=== PATIENT | female | born 1990 | race Two or more races ===

== ENCOUNTER 2017-01-20 15:41 | Observation (INO) | payer MEDICAID ==
[~2017-01-20] VITALS: Ht 170.2 cm; Wt 92.1 kg
[2017-01-20] MEDS ORDERED: ACETAMINOPHEN 500MG TABLET PO NR (16:15)
[2017-01-20] MEDS ORDERED: ONDANSETRON HCL 4MG/2ML VIAL IV NR (16:15)
[2017-01-20] MEDS ORDERED: SODIUM CHLORIDE 0.9% 1,000 ML IV SCH (16:30)
[2017-01-20] MEDS ORDERED: TERBUTALINE SULFATE 1MG/ML VIAL SUBCUT PRN (16:30)
[2017-01-20 16:51] LABS: CLARITY URINE CLEAR (CLEAR); COLOR URINE YELLOW (YELLOW); GLUCOSE URINE NEGATIVE (NEGATIVE); KETONES URINE 1+ (NEGATIVE); LEUKOCYTE ESTERASE URINE NEGATIVE (NEGATIVE); NITRITE URINE NEGATIVE (NEGATIVE); OCCULT BLOOD URINE NEGATIVE (NEGATIVE); PROTEIN URINE NEGATIVE (NEGATIVE); SPECIFIC GRAVITY URINE 1.024 (1.005-1.030); UROBILINOGEN URINE 0.2 E.U./dL (0.2-1.0)
[2017-01-20 16:52] LABS: CARBON DIOXIDE 23 mEq/L (21-32); CHLORIDE 106 mEq/L (98-107)
== END 2017-01-20 17:30 | disposition home or self-care (01) ==
LOC: L&D 15:41
PROVIDERS: ADMIT Obstetrics & Gynecology; ATTEND Obstetrics & Gynecology
DX: O21.2 Late vomiting of pregnancy (principal); O26.893 Other specified pregnancy related conditions, third trimester; R19.7 Diarrhea, unspecified; M54.9 Dorsalgia, unspecified; Z3A.27 27 weeks gestation of pregnancy
CPT/HCPCS: 36415; 80053; 81003; 96361; 96372; 96374; 99281; G0378; J2405; J3105; J7030

== ENCOUNTER 2017-02-07 16:16 | Observation (INO) | payer MEDICAID ==
[~2017-02-07] VITALS: Ht 170.2 cm; Wt 92.5 kg
[2017-02-07] MEDS ORDERED: PNV1TABL76 PO (16:47)
[2017-02-07 18:01] LABS: BASOPHILS % 0.1 % (0.0-2.0); HEMATOCRIT. 35.7 % (36.0-48.0); HEMOGLOBIN. 12.1 g/dL (12.0-16.0); LYMPHOCYTES % 25.1 % (20.0-50.0); MEAN CORPUSCULAR HEMOGLOBIN 29.5 pg (28.0-32.0); MEAN PLATELET VOLUME 9.7 fl (7.4-10.4); MONOCYTES % 8.5 % (2.0-8.0); NEUTROPHILS % 66.3 % (40.0-76.0); PLATELET 169 x1000/uL (130-400); RED BLOOD CELL COUNT 4.11 mill/uL (4.2-5.4); RED CELL DISTRIBUTION WIDTH 12.8 % (11.6-14.6)
[2017-02-07 18:06] LABS: PARTIAL THROMBOPLASTIN TIME 27.1 sec (23.4-31.0)
== END 2017-02-07 19:10 | disposition home or self-care (01) ==
LOC: L&D 16:16
PROVIDERS: ADMIT Obstetrics & Gynecology; ATTEND Obstetrics & Gynecology
DX: O26.893 Other specified pregnancy related conditions, third trimester (principal); R10.9 Unspecified abdominal pain; O99.89 Other specified diseases and conditions complicating pregnancy, childbirth and the puerperium; M54.9 Dorsalgia, unspecified; Z3A.30 30 weeks gestation of pregnancy
CPT/HCPCS: 36415; 76805; 76818; 85025; 85610; 85730; 99281; G0378

== ENCOUNTER 2018-10-19 20:32 | Emergency (ER) | payer MEDICAID ==
[~2018-10-19] VITALS: Ht 170.2 cm; Wt 78.0 kg
[~2018-10-19 20:32] MED LIST: PNV1TABL76 PO
[2018-10-19] MEDS ORDERED: IBUPROFEN 600MG TABLET PO ONE (23:45)
[2018-10-20 01:26] VITALS: BP 122/75
== END 2018-10-20 01:32 | disposition home or self-care (01) ==
LOC: ER 20:32
DX: S70.02XA Contusion of left hip, initial encounter (principal); S90.02XA Contusion of left ankle, initial encounter; W01.198A Fall on same level from slipping, tripping and stumbling with subsequent striking against other object, initial encounter; Y93.89 Activity, other specified; Y92.89 Other specified places as the place of occurrence of the external cause
CPT/HCPCS: 73502; 73610; 99283; Z7610

== ENCOUNTER 2021-10-16 18:21 | Inpatient (IN) | payer MEDICAID, OTHER ==
[~2021-10-16] VITALS: Ht 170.2 cm; Wt 67.6 kg
[2021-10-16] MEDS ORDERED: ACETAMINOPHEN 325MG TABLET PO ONE (21:00)
[2021-10-16] MEDS ORDERED: HYDROXYCHLOROQUINE SULFATE 200MG TABLET PO ONE (21:00)
[2021-10-16] MEDS ORDERED: PREDNISONE 20MG TABLET PO ONE (21:00)
[2021-10-16] MEDS ORDERED: TETRACAINE 0.5% OPHTH DROPS 4ML RIGHTEYE ONE (22:15)
[2021-10-16] MEDS ORDERED: FLUORESCEIN SODIUM 1MG/STRIP RIGHTEYE ONE (22:15)
[2021-10-16 23:53] LABS: HEMATOCRIT. 30.1 % (36.0-48.0); HEMOGLOBIN. 10.1 g/dL (12.0-16.0); MEAN CORPUSCULAR HEMOGLOBIN 28.8 pg (28.0-32.0); MEAN CORPUSCULAR VOLUME 85.8 fL (81.0-99.0); MEAN PLATELET VOLUME 8.8 fl (7.4-10.4); PLATELET 138 x1000/uL (130-400); RED BLOOD CELL COUNT 3.51 mill/uL (4.2-5.4); RED CELL DISTRIBUTION WIDTH 14.1 % (11.6-14.6)
[2021-10-17] LABS: CHLORIDE 110 mEq/L (98-107)
[2021-10-17 00:01] LABS: HCG SCREEN NEGATIVE
[2021-10-17] MEDS ORDERED: FLUORESCEIN SODIUM 1MG/STRIP RIGHTEYE SCH (00:15)
[2021-10-17] MEDS ORDERED: TETRACAINE 0.5% OPHTH DROPS 4ML RIGHTEYE SCH (00:15)
[2021-10-17 00:34] LABS: ATYPICAL LYMPHOCYTES 3; PLATELET ESTIMATE NORMAL
[2021-10-17] MEDS ORDERED: VANCOMYCIN 1.25GM PMX (XELLIA) 250 ML IV SCH (01:30)
[2021-10-17] MEDS ORDERED: CEFTRIAXONE 2 G PREMIX 50 ML IV ONE (01:30)
[2021-10-17] MEDS ORDERED: MORPHINE SULFATE 2 MG/ML CPJ (NOT FOR IM USE) IV ONE (01:45)
[2021-10-17] MEDS ORDERED: WATER IV SCH (02:00)
[2021-10-17] MEDS ORDERED: VANCOMYCIN IV SCH (02:00)
[2021-10-17] MEDS ORDERED: DEXT 5% IV SCH (02:00)
[2021-10-17 03:32] LABS: CLARITY URINE CLOUDY (CLEAR); COLOR URINE YELLOW (YELLOW); KETONES URINE NEGATIVE (NEGATIVE); LEUKOCYTE ESTERASE URINE NEGATIVE (NEGATIVE); NITRITE URINE NEGATIVE (NEGATIVE); OCCULT BLOOD URINE TRACE (NEGATIVE); PROTEIN URINE 3+ (NEGATIVE); SPECIFIC GRAVITY URINE 1.011 (1.005-1.030); UROBILINOGEN URINE 0.2 E.U./dL (0.2-1.0)
[2021-10-17] MEDS ORDERED: P50 MT (10:45)
[2021-10-17] MEDS ORDERED: BACI3.5O24 EACHEYE (10:45)
[2021-10-17] MEDS ORDERED: HYDR200T80 MT (10:45)
[2021-10-17] MEDS: PREDNISONE 20MG TABLET PO SCH (11:45)
[2021-10-17] MEDS ORDERED: NALOXONE HCL 0.4MG/ML VIAL IV PRN (11:45)
[2021-10-17] MEDS: HYDROCODONE/ACETAMINOPHEN 5/325MG TABLET PO PRN ×3 (11:47→20:59)
[2021-10-17 12:00] VITALS: BP 136/89
[2021-10-17] MEDS ORDERED: BACITRACIN 15GM TUBE TOP NR (12:00)
[2021-10-17] MEDS ORDERED: CEFTRIAXONE 1 G PREMIX 50 ML IV SCH (12:15)
[2021-10-17] MEDS ORDERED: IPRATROPIUM/ALBUTEROL 0.5-3(2.5)MG/3ML NEB HHN PRN (12:15)
[2021-10-17 13:26] VITALS: BP 124/66
[2021-10-17] MEDS: HYDROXYCHLOROQUINE SULFATE 200MG TABLET PO SCH (13:46)
[2021-10-17] MEDS: NICOTINE 7MG PATCH TD SCH (13:47)
[2021-10-17 16:00] VITALS: BP 137/81
[2021-10-17] MEDS: CEFEPIME 2,000 MG in DEXT 5% WATER 100 ML IV SCH (18:16)
[2021-10-17 20:00] VITALS: BP 98/45
[2021-10-17] MEDS ORDERED: VANCOMYCIN 1250MG in DEXTROSE 5% WATER 250ML IV SCH (20:30)
[2021-10-18] VITALS: BP 101/50
[2021-10-18 01:04] LABS: *AMPHETAMINES SCREEN URINE NEGATIVE (NEGATIVE); *BARBITURATES SCREEN URINE NEGATIVE (NEGATIVE); *BENZODIAZEPINES SCREEN URINE NEGATIVE (NEGATIVE); *COCAINE SCREEN URINE NEGATIVE (NEGATIVE); METHADONE URINE SCREEN NEGATIVE (NEGATIVE); PHENCYCLIDINE URINE SCREEN NEGATIVE (NEGATIVE)
[2021-10-18 01:12] LABS: CANNABINOID URINE SCREEN PRESUMTIVE POSITIVE (NEGATIVE); OPIATES URINE SCREEN PRESUMTIVE POSITIVE (NEGATIVE)
[2021-10-18] MEDS ORDERED: CEFTRIAXONE 1,000 MG in DEXTROSE 5% WATER 50 ML IV SCH (02:00)
[2021-10-18 04:00] VITALS: BP 110/63
[2021-10-18] MEDS ORDERED: ONDANSETRON HCL 4MG/2ML INJ IV PRN (04:30)
[2021-10-18] MEDS: OXYCODONE HCL/ACETAMINOPHEN 5/325MG TABLET PO PRN ×3 (04:49→15:00)
[2021-10-18] MEDS: CEFEPIME 2,000 MG in DEXT 5% WATER 100 ML IV SCH ×2 (05:07→06:00)
[2021-10-18 08:00] VITALS: BP 141/88
[2021-10-18] MEDS: NICOTINE 7MG PATCH TD SCH (08:45)
[2021-10-18] MEDS: HYDROXYCHLOROQUINE SULFATE 200MG TABLET PO SCH (08:46)
[2021-10-18] MEDS: PREDNISONE 20MG TABLET PO SCH (08:46)
[2021-10-18] MEDS ORDERED: VANCOMYCIN 750 MG in DEXT 5% WATER 250 ML IV SCH ×2 (09:00→14:00)
[2021-10-18 12:21] VITALS: BP 107/62
[2021-10-18] MEDS ORDERED: DOXY100T2 MT (15:32)
[2021-10-18] MEDS ORDERED: AMOX-424 MT (15:32)
[2021-10-18 16:00] VITALS: BP 117/68
[2021-10-18 16:21] VITALS: BP 107/62
== END 2021-10-18 20:45 | disposition home or self-care (01) | DRG 383 ==
LOC: ER 18:21 → 6EST 10-17 07:54 → ENRESERV 10-17 08:47
PROVIDERS: ADMIT Internal Medicine; ATTEND Internal Medicine
DX: L03.213 Periorbital cellulitis (principal); E43 Unspecified severe protein-calorie malnutrition; E87.8 Other disorders of electrolyte and fluid balance, not elsewhere classified; L03.211 Cellulitis of face; M32.9 Systemic lupus erythematosus, unspecified; D64.9 Anemia, unspecified; D72.819 Decreased white blood cell count, unspecified; F17.210 Nicotine dependence, cigarettes, uncomplicated; J45.909 Unspecified asthma, uncomplicated; Y90.9 Presence of alcohol in blood, level not specified; Z72.89 Other problems related to lifestyle; Z59.00 Homelessness unspecified; Z68.23 Body mass index [BMI] 23.0-23.9, adult
CPT/HCPCS: 36415; 70486; 80053; 80305; 81003; 83605; 84145; 84703; 85025; 99285; J0692; J0696; J2270; J2405; J3370; J7060; J7512

== ENCOUNTER 2021-10-19 16:55 | Emergency (ER) | payer OTHER ==
[~2021-10-19] VITALS: Ht 170.2 cm; Wt 62.0 kg
[~2021-10-19 16:55] MED LIST changes: +AMOX-424 MT; +BACI3.5O24 EACHEYE; +DOXY100T2 MT; +HYDR200T80 MT; +P50 MT
[2021-10-19] MEDS ORDERED: DIPHENHYDRAMINE 50MG/ML VIAL IV ONE (19:15)
[2021-10-19] MEDS ORDERED: SODIUM CHLORIDE 0.9% 1,000 ML IV ONE (19:15)
[2021-10-19 19:33] LABS: HEMATOCRIT. 37.1 % (36.0-48.0); HEMOGLOBIN. 12.1 g/dL (12.0-16.0); MEAN CORPUSCULAR HEMOGLOBIN 28.3 pg (28.0-32.0); MEAN CORPUSCULAR VOLUME 86.5 fL (81.0-99.0); MEAN PLATELET VOLUME 9.1 fl (7.4-10.4); PLATELET 224 x1000/uL (130-400); RED BLOOD CELL COUNT 4.28 mill/uL (4.2-5.4); RED CELL DISTRIBUTION WIDTH 14.3 % (11.6-14.6)
[2021-10-19 19:39] LABS: CHLORIDE 107 mEq/L (98-107)
[2021-10-19 21:31] LABS: PLATELET ESTIMATE NORMAL
[2021-10-19] MEDS ORDERED: MORPHINE SULFATE 4 MG/ML CPJ (NOT FOR IM USE) IV ONE (22:15)
[2021-10-19 22:55] VITALS: BP 128/87
== END 2021-10-19 22:55 | disposition short-term general hospital (02) ==
LOC: ER 16:55
DX: M32.9 Systemic lupus erythematosus, unspecified (principal); L29.9 Pruritus, unspecified; J45.909 Unspecified asthma, uncomplicated; F17.210 Nicotine dependence, cigarettes, uncomplicated; Z20.822 Contact with and (suspected) exposure to COVID-19; Z71.6 Tobacco abuse counseling
CPT/HCPCS: 36415; 80053; 81025; 85025; 87426; 96374; 99283; 99406; C9803; J1200; J2270; J7030